=== PATIENT | male | born 1960 | race Caucasian/White ===

== ENCOUNTER → 2021-07-03 | Outpatient (CLI) | payer OTHER ==
[~2021-07-03] MED LIST: ACETAMINOPHEN-1 EAC1 PO; APPLE CIDER VINEGAR; BACLOFEN10 MG PO; CELECOXIB200 MG PO; FIBER; FISH OIL 1,0001 EAC1 PO; GABAPENTIN300 MG PO; LECITHIN; LEVOCETIRIZINE D5 MG PO; LOW DOSE ASPIRI81 MG PO; MULTIVITAMIN; OXYBUTYNIN CHLO10 MG PO; PROTONIX40 MG PO; SINGULAIR10 MG PO; TURMERIC; VITAMIN C1000 MG PO; VITAMIN D3125 MCG PO; VITAMIN E400 UNI2 PO
[2021-07-03 10:53] LABS: HEMOGLOBIN 14.7 gm/dl (14.0-17.5); RED BLOOD COUNT 4.84 M/UL (4.20-5.50); WHITE BLOOD COUNT 6.8 K/UL (4.5-11.0)
[2021-07-03 11:19] LABS: BUN/CREATININE RATIO 19 (0-10)
== END ==
LOC: OPSV2 09:30
PROVIDERS: Orthopaedic Surgery
DX: Z01.812 Encounter for preprocedural laboratory examination (principal); G56.01 Carpal tunnel syndrome, right upper limb
CPT/HCPCS: 80048; 85025

== ENCOUNTER → 2021-07-10 | Day surgery (SDC) | payer OTHER | END | disposition home or self-care (01) | LOC: OR 05:28 | DX: G56.01 Carpal tunnel syndrome, right upper limb (principal); K21.9 Gastro-esophageal reflux disease without esophagitis; C61 Malignant neoplasm of prostate; Z20.822 Contact with and (suspected) exposure to COVID-19 | CPT/HCPCS: J0690; J1885; J2001; J2250; J2704; J3010; J7030; J7120 ==